=== PATIENT | male | born 1960 | race Caucasian/White ===

== ENCOUNTER 2018-03-01 09:14 | Inpatient (IN) ==
[2018-03-01] MEDS ORDERED: DEXTROSE 50% 25 GM/50 ML VIAL IV PRN (11:09)
[2018-03-01] MEDS ORDERED: ZALEPLON 5 MG CAPSULE PO PRN (11:15)
[2018-03-01] MEDS ORDERED: SODIUM CHLORIDE 0.9% 1,000 ML IV SCH (11:30)
[2018-03-01] MEDS ORDERED: GLUCAGON 1 MG VIAL IM PRN (11:50)
[2018-03-01] MEDS: CHLORHEXIDINE 4% SOLN 118 ML BOTTLE TOP SCH ×2 (15:20→21:12)
[2018-03-01] MEDS ORDERED: CHLORHEXIDINE 0.12% ORAL RINSE 60 ML BOTTLE SWISH/SPIT SCH (21:00)
[2018-03-01] MEDS ORDERED: glyBURIDE 2.5 MG TABLET PO SCH (21:00)
[2018-03-02] MEDS ORDERED: CEFUROXIME INJ 1,500 MG in SYRINGE 1 EACH IV ONE (05:00)
[2018-03-02] MEDS ORDERED: VANCOMYCIN 1,000 MG VIAL ONE (05:32)
[2018-03-02] MEDS ORDERED: SUFentanil 250 MCG/5 ML AMP ONE ×2 (05:47→08:59)
[2018-03-02] MEDS ORDERED: MIDAZOLAM 10 MG/2 ML VIAL ONE ×2 (05:47→13:10)
[2018-03-02] MEDS ORDERED: NITROGLYCERIN DRIP 50 MG/250 ML BOTTLE IV ONE (05:48)
[2018-03-02] MEDS ORDERED: PHENYLEPHRINE DRIP 20 MG/250 ML PREMIX IV ONE ×2 (05:48→13:20)
[2018-03-02] MEDS ORDERED: HEPARIN/NACL 0.9% 2 UNITS/ML 500 ML IV ONE (05:48)
[2018-03-02 06:24] LABS: Basophils # 0.1 10*3/uL (0.0-0.2); Basophils % 1.9 % (0.0-0.8); Eosinophils # 0.9 10*3/uL (0.0-0.87); Eosinophils % 12.7 % (0.00-10.9); Hematocrit 42.9 VOL% (42.0-52.0); Hemoglobin 14.8 GM/DL (14.0-18.0); Immature Granulocytes % 0.1 %; Immature Granulocytes Absolute 0.01 #; Lymphocytes # 2.5 10*3/uL (1.4-4.0); Lymphocytes % 34.1 % (21.2-54.2); Mean Corpuscular HGB Conc 34.5 GM/DL (32-36); Mean Corpuscular Hemoglobin 33 PG (27-34); Mean Corpuscular Volume 94.1 FL (87-102); Mean Platelet Volume 10.7 FL (9.6-12.0); Monocytes # 0.7 10*3/uL (0.11-0.8); Monocytes % 9.1 % (1.7-12.7); Neutrophils # 3.1 10*3/uL (1.4-7.4); Neutrophils % 42.1 % (38.7-73.9); Platelet Count 206 T/CUMM (130-400); Red Blood Count 4.56 MC/CUMM (3.8-5.5); White Blood Count 7.3 T/CUMM (4-12)
[2018-03-02 07:08] LABS: Albumin 3.8 G/DL (3.4-5.0); Bilirubin,Total 1.4 MG/DL (0.2-1.0); Calcium 8.6 MG/DL (8.5-10.1); Total Protein 6.5 G/DL (6.4-8.3)
[2018-03-02 07:09] LABS: Osmolality,Calculated 279.5 MOS/KG (273-304)
[2018-03-02 07:23] LABS: Eosinophils 20 % (0-10); Hypochromasia 1+; Lymphocytes 33 % (20-55); Platelet Estimate Adequate; Segmented Neutrophils 39 % (50-85); Total Cells Counted 100
[2018-03-02 07:51] LABS: ABG Base Excess -1.9 MMOL/L (-2.5-2.5); ABG HCO3 22.9 MMOL/L (20-26); ABG Oxygen Saturation 99.7 % (95-100); ABG PCO2 31.3 MM HG (35-48); ABG TCO2 18.4 MMOL/L (23-27); Glucose Heart Surgery 153 MG/DL (74-106); Hematocrit Heart Surgery 41.2 PERCENT (42-52); Hemoglobin Heart Surgery 13.4 G/DL (14.0-18.0); Ionized Calcium Arterial 1.11 MMOL/L (1.21-1.46); PCO2 Patient Temp Arterial 31.3 MMHG; Patient Temperature 37 CELCIUS; Potassium Heart/CVR 3.9 MMOL/L (3.5-5.1); Sodium Heart/CVR 136 MMOL/L (135-145)
[2018-03-02] MEDS ORDERED: CALCIUM CHLORIDE 1,000 MG/10 ML SYRINGE IV ONE ×2 (08:08→12:58)
[2018-03-02] MEDS ORDERED: PHENYLEPHRINE DRIP 40 MG/250 ML PREMIX IV ONE (08:08)
[2018-03-02] MEDS ORDERED: NITROPRUSSIDE 50 MG/2 ML VIAL ONE (08:08)
[2018-03-02] MEDS ORDERED: POTASSIUM CHLORIDE RIDER 100 ML IV ONE (08:08)
[2018-03-02 08:43] LABS: Hematocrit Heart Surgery 29.6 PERCENT (42-52); Hemoglobin Heart Surgery 9.6 G/DL (14.0-18.0); PCO2 Patient Temp Venous 35.5 MM HG; PH Patient Temp Venous 7.448; PO2 Patient Temp Venous 37.9 MM HG; Potassium Heart/CVR 5.2 MMOL/L (3.5-5.1); VBG Base Excess 0.8 MEQ/L (0-4); VBG HCO3 24.9 MEQ/L (24-28); VBG Oxygen Saturation 79.9 %; VBG PCO2 39.1 MMHG (41-51); VBG PH 7.418; VBG PO2 43.5 MMHG (17-40)
[2018-03-02] MEDS ORDERED: ROCURONIUM 100 MG/10 ML VIAL IV ONE ×2 (08:59→13:20)
[2018-03-02] MEDS ORDERED: LISINOPRIL 20 MG TABLET PO SCH (09:00)
[2018-03-02] MEDS ORDERED: ATORVASTATIN 40 MG TABLET PO SCH (09:00)
[2018-03-02] MEDS ORDERED: ASPIRIN EC 81 MG TABLET PO SCH (09:00)
[2018-03-02 09:13] LABS: Hematocrit Heart Surgery 34.1 PERCENT (42-52); Hemoglobin Heart Surgery 11.1 G/DL (14.0-18.0); PCO2 Patient Temp Venous 30.5 MM HG; PH Patient Temp Venous 7.487; PO2 Patient Temp Venous 33.4 MM HG; Potassium Heart/CVR 5.9 MMOL/L (3.5-5.1); VBG Base Excess 0.4 MEQ/L (0-4); VBG HCO3 24.5 MEQ/L (24-28); VBG Oxygen Saturation 80.5 %; VBG PH 7.428; VBG PO2 44.1 MMHG (17-40)
[2018-03-02 09:44] LABS: Hematocrit Heart Surgery 35.7 PERCENT (42-52); Hemoglobin Heart Surgery 11.6 G/DL (14.0-18.0); PCO2 Patient Temp Venous 28.1 MM HG; PH Patient Temp Venous 7.515; PO2 Patient Temp Venous 32.5 MM HG; VBG Base Excess 0.6 MEQ/L (0-4); VBG HCO3 24.6 MEQ/L (24-28); VBG Oxygen Saturation 80.7 %; VBG PCO2 34.1 MMHG (41-51); VBG PH 7.455
[2018-03-02 09:45] LABS: Potassium Heart/CVR 6.1 MMOL/L (3.5-5.1)
[2018-03-02] MEDS ORDERED: methylPREDNISolone SOD SUC 1,000 MG/8 ML VIAL ONE (10:41)
[2018-03-02] MEDS ORDERED: ALBUMIN 25% 25 GM/100 ML VIAL IV ONE (10:41)
[2018-03-02] MEDS ORDERED: SODIUM BICARBONATE 50 MEQ/50 ML SYRINGE IV ONE ×3 (10:41→13:00)
[2018-03-02] MEDS ORDERED: MAGNESIUM SULFATE 10 GM/20 ML VIAL IV ONE (10:41)
[2018-03-02] MEDS ORDERED: FUROSEMIDE 20 MG/2 ML VIAL ONE (10:41)
[2018-03-02] MEDS ORDERED: MANNITOL 12.5 GM/50 ML VIAL IV ONE (10:41)
[2018-03-02] MEDS ORDERED: PROTAMINE SULFATE 250 MG/25 ML VIAL IV ONE (10:41)
[2018-03-02] MEDS ORDERED: DEXTROSE 5% KCL 20 MEQ 20 MEQ/1,000 ML BAG IV ONE (10:41)
[2018-03-02] MEDS ORDERED: HEPARIN 10,000 UNIT/10 ML VIAL ONE (10:41)
[2018-03-02 10:52] LABS: Hematocrit Heart Surgery 30.2 PERCENT (42-52); Hemoglobin Heart Surgery 9.7 G/DL (14.0-18.0); PCO2 Patient Temp Venous 31.8 MM HG; PH Patient Temp Venous 7.432; Potassium Heart/CVR 4.3 MMOL/L (3.5-5.1); VBG Base Excess -2.4 MEQ/L (0-4); VBG HCO3 22.5 MEQ/L (24-28); VBG PCO2 31.8 MMHG (41-51); VBG PH 7.432
[2018-03-02] MEDS ORDERED: ALBUMIN 5% 12.5 GM/250 ML VIAL IV ONE ×3 (11:04→13:16)
[2018-03-02] MEDS ORDERED: THROMBIN TOPICAL (RECOMBINANT) 5,000 UNIT VIAL TOP ONE (11:11)
[2018-03-02 12:33] LABS: ABG Base Excess -3.7 MMOL/L (-2.5-2.5); ABG HCO3 21.3 MMOL/L (20-26); ABG Oxygen Saturation 99.8 % (95-100); ABG PCO2 38.5 MM HG (35-48); ABG PH 7.354 (7.35-7.45); ABG TCO2 20.1 MMOL/L (23-27); Glucose Heart Surgery 303 MG/DL (74-106); Hematocrit Heart Surgery 24.6 PERCENT (42-52); Hemoglobin Heart Surgery 7.9 G/DL (14.0-18.0); Ionized Calcium Arterial 1.11 MMOL/L (1.21-1.46); PCO2 Patient Temp Arterial 38.5 MMHG; PH Patient Temp Arterial 7.354; Patient Temperature 37 CELCIUS; Potassium Heart/CVR 3.6 MMOL/L (3.5-5.1); Sodium Heart/CVR 141 MMOL/L (135-145)
[2018-03-02] MEDS: ALBUMIN 5% 12.5 GM in PREMIX 1 EACH IV PRN ×4 (12:50→20:42)
[2018-03-02] MEDS ORDERED: diphenhydrAMINE 50 MG/1 ML VIAL IV ONE (12:55)
[2018-03-02] MEDS ORDERED: SEVOFLURANE 1 UNIT/15 MINUTE INH ONE (13:15)
[2018-03-02] MEDS ORDERED: diphenhydrAMINE 50 MG/1 ML VIAL ONE (13:16)
[2018-03-02] MEDS ORDERED: MIDAZOLAM 2 MG/2 ML VIAL IV PRN (13:18)
[2018-03-02] MEDS ORDERED: MIDAZOLAM 10 MG/2 ML VIAL IV PRN (13:18)
[2018-03-02] MEDS ORDERED: VECURONIUM 10 MG VIAL IV PRN ×2 (13:18)
[2018-03-02] MEDS ORDERED: INSULIN REGULAR DRIP 100 ML IV SCH (13:18)
[2018-03-02] MEDS ORDERED: PHENYLEPHRINE DRIP 40 MG/250 ML PREMIX IV PRN (13:18)
[2018-03-02] MEDS ORDERED: MORPHINE 4 MG/1 ML VIAL IV PRN (13:18)
[2018-03-02] MEDS ORDERED: CALCIUM CHLORIDE 1,000 MG/10 ML SYRINGE IV PRN (13:18)
[2018-03-02] MEDS ORDERED: ONDANSETRON 4 MG/2 ML VIAL IV PRN (13:18)
[2018-03-02] MEDS ORDERED: MORPHINE 10 MG/1 ML VIAL IV PRN (13:18)
[2018-03-02] MEDS ORDERED: SODIUM CHLORIDE 0.45% 1,000 ML IV SCH ×2 (13:18)
[2018-03-02] MEDS ORDERED: MAGNESIUM SULF RIDER 2 GM in PREMIX 1 EACH IV PRN (13:18)
[2018-03-02] MEDS ORDERED: NITROPRUSSIDE 100 MG in DEXTROSE 5% 250 ML IV PRN (13:18)
[2018-03-02] MEDS ORDERED: POTASSIUM CHLORIDE RIDER 10 MEQ in PREMIX 1 EACH IV PRN (13:18)
[2018-03-02] MEDS ORDERED: CALCIUM CHLORIDE 1,000 MG/10 ML VIAL IV ONE (13:18)
[2018-03-02] MEDS ORDERED: INSULIN REGULAR 100 UNIT/ML IV PRN (13:18)
[2018-03-02] MEDS ORDERED: ACETAMINOPHEN 650 MG SUPP RECTAL PRN (13:18)
[2018-03-02] MEDS ORDERED: LACTATED RINGERS 250 ML IV PRN (13:18)
[2018-03-02] MEDS ORDERED: MAGNESIUM SULF RIDER 4 GM in PREMIX 1 EACH IV PRN (13:18)
[2018-03-02] MEDS ORDERED: INSULIN REGULAR 100 UNIT/ML IV ONE (13:18)
[2018-03-02] MEDS ORDERED: DEXTROSE 50% 25 GM/50 ML VIAL IV PRN ×2 (13:18)
[2018-03-02] MEDS ORDERED: PHENYLEPHRINE 1 MG/10 ML SYRINGE IV ONE (13:19)
[2018-03-02] MEDS ORDERED: MINERAL OIL/PETROLATUM OPH OINT 3.5 GM TUBE ONE (13:19)
[2018-03-02] MEDS ORDERED: AMINOCAPROIC ACID 5,000 MG/20 ML VIAL IV ONE (13:19)
[2018-03-02] MEDS ORDERED: ETOMIDATE 40 MG/20 ML VIAL IV ONE (13:19)
[2018-03-02] MEDS ORDERED: ePHEDrine 50 MG/ML AMP ONE (13:19)
[2018-03-02] MEDS ORDERED: SODIUM CHLORIDE 0.9% 2,000 ML IV ONE (13:20)
[2018-03-02] MEDS ORDERED: SODIUM CHLORIDE 0.9% 250 ML IV ONE (13:20)
[2018-03-02] MEDS ORDERED: ESMOLOL 100 MG/10 ML VIAL IV ONE (13:24)
[2018-03-02] MEDS ORDERED: EPINEPHrine 1 MG/ML VIAL ONE (13:24)
[2018-03-02] MEDS ORDERED: PROTAMINE SULFATE 50 MG/5 ML VIAL IV ONE ×2 (13:28→13:30)
[2018-03-02 14:18] LABS: ABG Base Excess -0.9 MMOL/L (-2.5-2.5); ABG HCO3 23.7 MMOL/L (20-26); ABG Oxygen Saturation 99.5 % (95-100); ABG PCO2 41.3 MM HG (35-48); ABG PH 7.376 (7.35-7.45); ABG TCO2 22.2 MMOL/L (23-27); Glucose Heart Surgery 307 MG/DL (74-106); Hematocrit Heart Surgery 29.1 PERCENT (42-52); Hemoglobin Heart Surgery 9.4 G/DL (14.0-18.0); Potassium Heart/CVR 4.2 MMOL/L (3.5-5.1)
[2018-03-02 14:22] LABS: Basophils # 0.1 10*3/uL (0.0-0.2); Basophils % 0.4 % (0.0-0.8); Eosinophils # 0.1 10*3/uL (0.0-0.87); Eosinophils % 0.6 % (0.00-10.9); Hematocrit 26.5 VOL% (42.0-52.0); Hemoglobin 9.2 GM/DL (14.0-18.0); Immature Granulocytes % 0.5 %; Immature Granulocytes Absolute 0.07 #; Lymphocytes # 0.7 10*3/uL (1.4-4.0); Mean Corpuscular HGB Conc 34.7 GM/DL (32-36); Mean Corpuscular Hemoglobin 32 PG (27-34); Mean Platelet Volume 10.5 FL (9.6-12.0); Monocytes # 0.5 10*3/uL (0.11-0.8); Monocytes % 3.3 % (1.7-12.7); Neutrophils % 90.2 % (38.7-73.9); Platelet Count 132 T/CUMM (130-400); Red Blood Count 2.88 MC/CUMM (3.8-5.5); Red Cell Distribution Width 13.4 % (9.3-17.3); White Blood Count 14.4 T/CUMM (4-12)
[2018-03-02] MEDS: KETOROLAC 30 MG/1 ML VIAL IV SCH ×2 (14:37→19:23)
[2018-03-02] MEDS: POTASSIUM CHLORIDE RIDER 20 MEQ in PREMIX 1 EACH IV PRN ×2 (14:41→18:17)
[2018-03-02 14:45] LABS: Albumin 3.4 G/DL (3.4-5.0); Bilirubin,Total 2.3 MG/DL (0.2-1.0); CKMB % 7.2 %; Osmolality,Calculated 300.6 MOS/KG (273-304); Potassium 4.5 MMOL/L (3.5-5.1); Total Protein 4.8 G/DL (6.4-8.3)
[2018-03-02 14:48] LABS: Troponin I 6.28 NG/ML (0.00-0.045)
[2018-03-02] MEDS: LACTATED RINGERS 1,000 ML IV PRN ×2 (15:00→18:21)
[2018-03-02 15:03] LABS: INR 1.4; PT Patient Result 14.3 SECS; Partial Thromboplastin Time 31.6 SECS (0-40)
[2018-03-02] MEDS: METOPROLOL TARTRATE 25 MG TABLET PO SCH ×2 (15:06→20:18)
[2018-03-02 16:01] LABS: ABG Base Excess -0.3 MMOL/L (-2.5-2.5); ABG HCO3 24.2 MMOL/L (20-26); ABG Oxygen Saturation 99.6 % (95-100); ABG PCO2 45.4 MM HG (35-48); ABG PH 7.358 (7.35-7.45); Glucose Heart Surgery 263 MG/DL (74-106); Hematocrit Heart Surgery 33.8 PERCENT (42-52)
[2018-03-02 18:07] LABS: ABG Base Excess 0.1 MMOL/L (-2.5-2.5); ABG HCO3 24.5 MMOL/L (20-26); ABG Oxygen Saturation 99.1 % (95-100); ABG PCO2 44.5 MM HG (35-48); ABG PH 7.368 (7.35-7.45); ABG TCO2 23.1 MMOL/L (23-27); Glucose Heart Surgery 176 MG/DL (74-106); Hematocrit Heart Surgery 33.3 PERCENT (42-52); Hemoglobin Heart Surgery 10.8 G/DL (14.0-18.0); Potassium Heart/CVR 3.9 MMOL/L (3.5-5.1)
[2018-03-02] MEDS: CEFUROXIME INJ 1,500 MG in SYRINGE 1 EACH IV SCH (20:17)
[2018-03-02] MEDS: CHLORHEXIDINE 0.12% ORAL RINSE 60 ML BOTTLE SWISH/SPIT SCH (20:18)
[2018-03-02 20:51] LABS: ABG Base Excess 0.4 MMOL/L (-2.5-2.5); ABG HCO3 24.8 MMOL/L (20-26); ABG Oxygen Saturation 99.2 % (95-100); ABG PCO2 43.8 MM HG (35-48); ABG PH 7.377 (7.35-7.45); ABG TCO2 23.4 MMOL/L (23-27); Glucose Heart Surgery 184 MG/DL (74-106); Hematocrit Heart Surgery 31.5 PERCENT (42-52); Hemoglobin Heart Surgery 10.2 G/DL (14.0-18.0); Potassium Heart/CVR 4.4 MMOL/L (3.5-5.1)
[2018-03-02 21:23] LABS: CKMB % 4.3 %
[2018-03-02 21:24] LABS: Troponin I 4.05 NG/ML (0.00-0.045)
[2018-03-03 00:05] LABS: ABG Base Excess -0.8 MMOL/L (-2.5-2.5); ABG HCO3 23.8 MMOL/L (20-26); ABG Oxygen Saturation 99.3 % (95-100); ABG PCO2 45.3 MM HG (35-48); ABG TCO2 22.8 MMOL/L (23-27); Glucose Heart Surgery 207 MG/DL (74-106); Hematocrit Heart Surgery 31.9 PERCENT (42-52); Hemoglobin Heart Surgery 10.3 G/DL (14.0-18.0); Potassium Heart/CVR 4.3 MMOL/L (3.5-5.1)
[2018-03-03] MEDS: LACTATED RINGERS 1,000 ML IV PRN (00:15)
[2018-03-03 01:03] LABS: ABG Base Excess -2.1 MMOL/L (-2.5-2.5); ABG HCO3 22.6 MMOL/L (20-26); ABG Oxygen Saturation 94.3 % (95-100); ABG PCO2 60.7 MM HG (35-48); ABG PH 7.244 (7.35-7.45); ABG PO2 81.5 MM HG (80-95); ABG TCO2 24.4 MMOL/L (23-27); Glucose Heart Surgery 204 MG/DL (74-106); Hematocrit Heart Surgery 30.5 PERCENT (42-52); Hemoglobin Heart Surgery 9.8 G/DL (14.0-18.0); Potassium Heart/CVR 4.1 MMOL/L (3.5-5.1)
[2018-03-03] MEDS: KETOROLAC 30 MG/1 ML VIAL IV SCH ×4 (01:19→21:51)
[2018-03-03 01:43] LABS: ABG Base Excess -2.1 MMOL/L (-2.5-2.5); ABG HCO3 25.6 MMOL/L (20-26); ABG Oxygen Saturation 96.4 % (95-100); ABG PCO2 58.5 MM HG (35-48); ABG PH 7.259 (7.35-7.45); ABG PO2 106.9 MM HG (80-95); ABG TCO2 27.4 MMOL/L (23-27); Glucose Heart Surgery 177 MG/DL (74-106); Hemoglobin Heart Surgery 10.6 G/DL (14.0-18.0); Potassium Heart/CVR 3.5 MMOL/L (3.5-5.1)
[2018-03-03 02:56] LABS: ABG Base Excess -1.1 MMOL/L (-2.5-2.5); ABG HCO3 23.5 MMOL/L (20-26); ABG Oxygen Saturation 96.8 % (95-100); ABG PCO2 62.6 MM HG (35-48); ABG PH 7.247 (7.35-7.45); ABG PO2 97.9 MM HG (80-95); ABG TCO2 25.4 MMOL/L (23-27); Glucose Heart Surgery 191 MG/DL (74-106); Hematocrit Heart Surgery 30.4 PERCENT (42-52); Hemoglobin Heart Surgery 9.8 G/DL (14.0-18.0); Potassium Heart/CVR 4.1 MMOL/L (3.5-5.1)
[2018-03-03] MEDS ORDERED: FUROSEMIDE 40 MG/4 ML VIAL IV ONE (03:42)
[2018-03-03 03:57] LABS: Albumin 3.6 G/DL (3.4-5.0); Bilirubin,Direct 0.25 MG/DL (0.0-0.20); Bilirubin,Total 1.5 MG/DL (0.2-1.0); Calcium 8.4 MG/DL (8.5-10.1); Osmolality,Calculated 296.6 MOS/KG (273-304); Potassium 4.3 MMOL/L (3.5-5.1); Total Protein 5.2 G/DL (6.4-8.3)
[2018-03-03] MEDS ORDERED: methylPREDNISolone SOD SUC 40 MG/1 ML VIAL IV SCH (04:00)
[2018-03-03] MEDS: ALBUTEROL/IPRATROPIUM 3 ML NEB RESP TX SCH ×6 (04:00→23:28)
[2018-03-03 04:01] LABS: Troponin I 2.99 NG/ML (0.00-0.045)
[2018-03-03 04:16] LABS: Basophils % 0.1 % (0.0-0.8); Hematocrit 27.7 VOL% (42.0-52.0); Hemoglobin 9.5 GM/DL (14.0-18.0); Immature Granulocytes % 0.6 %; Immature Granulocytes Absolute 0.13 #; Lymphocytes # 0.8 10*3/uL (1.4-4.0); Mean Corpuscular HGB Conc 34.3 GM/DL (32-36); Mean Corpuscular Hemoglobin 32 PG (27-34); Mean Corpuscular Volume 92.3 FL (87-102); Mean Platelet Volume 10.6 FL (9.6-12.0); Monocytes # 1.4 10*3/uL (0.11-0.8); Monocytes % 6.8 % (1.7-12.7); Neutrophils # 18.1 10*3/uL (1.4-7.4); Neutrophils % 88.5 % (38.7-73.9); Platelet Count 104 T/CUMM (130-400); White Blood Count 20.5 T/CUMM (4-12)
[2018-03-03 04:49] LABS: Band Neutrophils 3 % (0-10); Hypochromasia 1+; Lymphocytes 5 % (20-55); Ovalocytes Slight; Platelet Estimate Decreased; Segmented Neutrophils 86 % (50-85); Total Cells Counted 100
[2018-03-03 04:55] LABS: ABG Base Excess 0.7 MMOL/L (-2.5-2.5); ABG HCO3 25.1 MMOL/L (20-26); ABG Oxygen Saturation 99.4 % (95-100); ABG PCO2 44.2 MM HG (35-48); ABG PH 7.378 (7.35-7.45); ABG TCO2 23.7 MMOL/L (23-27); Glucose Heart Surgery 173 MG/DL (74-106); Hematocrit Heart Surgery 31.6 PERCENT (42-52); Hemoglobin Heart Surgery 10.2 G/DL (14.0-18.0); Potassium Heart/CVR 4.3 MMOL/L (3.5-5.1)
[2018-03-03] MEDS: METOPROLOL TARTRATE 25 MG TABLET PO SCH (08:01)
[2018-03-03] MEDS: CEFUROXIME INJ 1,500 MG in SYRINGE 1 EACH IV SCH (08:01)
[2018-03-03 08:29] LABS: ABG Base Excess 2.1 MMOL/L (-2.5-2.5); ABG Oxygen Saturation 97.6 % (95-100); ABG PCO2 42.9 MM HG (35-48); ABG PH 7.416 (7.35-7.45); ABG PO2 118.8 MM HG (80-95); ABG TCO2 28.3 MMOL/L (23-27); Glucose Heart Surgery 109 MG/DL (74-106); Hemoglobin Heart Surgery 10.5 G/DL (14.0-18.0); Potassium Heart/CVR 3.7 MMOL/L (3.5-5.1)
[2018-03-03] MEDS: POTASSIUM CHLORIDE RIDER 20 MEQ in PREMIX 1 EACH IV PRN (08:33)
[2018-03-03] MEDS: CHLORHEXIDINE 0.12% ORAL RINSE 60 ML BOTTLE SWISH/SPIT SCH ×2 (08:36→21:45)
[2018-03-03] MEDS ORDERED: INFLUENZA VIRUS VACCINE 0.5 ML SYRINGE IM ONE (09:00)
[2018-03-03] MEDS ORDERED: PNEUMOCOCCAL VACCINE (13 VALENT) 0.5 ML SYRINGE IM ONE (09:00)
[2018-03-03] MEDS: METOPROLOL TARTRATE 50 MG TABLET PO SCH ×2 (10:33→21:44)
[2018-03-03] MEDS: methylPREDNISolone SOD SUC 40 MG/1 ML VIAL IV SCH ×2 (10:37→21:44)
[2018-03-03] MEDS ORDERED: ONDANSETRON 4 MG/2 ML VIAL IV PRN (12:37)
[2018-03-03] MEDS ORDERED: ALUMINUM/MAGNES/SIMETH MAX STR 30 ML UDCUP PO PRN (12:37)
[2018-03-03] MEDS ORDERED: POTASSIUM CHLORIDE 20 MEQ TABLET PO PRN (12:37)
[2018-03-03] MEDS ORDERED: SODIUM CHLOR 0.45% KCL 20 MEQ 20 MEQ/1,000 ML BAG IV SCH (12:37)
[2018-03-03] MEDS ORDERED: ACETAMINOPHEN 325 MG TABLET PO PRN (12:37)
[2018-03-03] MEDS ORDERED: GLUCAGON 1 MG VIAL IM PRN ×2 (12:37)
[2018-03-03] MEDS ORDERED: ZALEPLON 5 MG CAPSULE PO PRN (12:37)
[2018-03-03] MEDS ORDERED: MAGNESIUM HYDROXIDE SUSP 30 ML UDCUP PO PRN (12:37)
[2018-03-03] MEDS ORDERED: oxyCODONE/ACETAMINOPHEN 5-325 MG TABLET PO PRN (12:37)
[2018-03-03] MEDS ORDERED: DEXTROSE 50% 25 GM/50 ML VIAL IV PRN ×2 (12:37)
[2018-03-03] MEDS ORDERED: MAGNESIUM SULF RIDER 2 GM in PREMIX 1 EACH IV PRN (12:37)
[2018-03-03] MEDS ORDERED: MAGNESIUM SULF RIDER 4 GM in PREMIX 1 EACH IV PRN (12:37)
[2018-03-03] MEDS ORDERED: MORPHINE 4 MG/1 ML VIAL IV PRN (12:37)
[2018-03-03] MEDS: glyBURIDE 2.5 MG TABLET PO SCH (21:44)
[2018-03-03] MEDS: INSULIN REGULAR 100 UNIT/ML SUBCUT SCH (21:52)
[2018-03-04] MEDS: ALBUTEROL/IPRATROPIUM 3 ML NEB RESP TX SCH ×6 (02:31→23:55)
[2018-03-04 02:38] LABS: Basophils % 0.1 % (0.0-0.8); Hematocrit 27.3 VOL% (42.0-52.0); Hemoglobin 9.1 GM/DL (14.0-18.0); Immature Granulocytes % 3.6 %; Immature Granulocytes Absolute 0.84 #; Lymphocytes # 0.7 10*3/uL (1.4-4.0); Lymphocytes % 2.9 % (21.2-54.2); Mean Corpuscular HGB Conc 33.3 GM/DL (32-36); Mean Corpuscular Hemoglobin 31 PG (27-34); Mean Corpuscular Volume 94.1 FL (87-102); Mean Platelet Volume 11.6 FL (9.6-12.0); Monocytes # 1.3 10*3/uL (0.11-0.8); Monocytes % 5.6 % (1.7-12.7); Neutrophils # 20.6 10*3/uL (1.4-7.4); Neutrophils % 87.8 % (38.7-73.9); Platelet Count 89 T/CUMM (130-400); Red Cell Distribution Width 14.9 % (9.3-17.3); White Blood Count 23.4 T/CUMM (4-12)
[2018-03-04] MEDS: KETOROLAC 30 MG/1 ML VIAL IV SCH ×4 (02:45→21:45)
[2018-03-04 03:19] LABS: Metamyelocytes 1 %; Platelet Estimate Decreased; Total Cells Counted 100
[2018-03-04 03:20] LABS: Anisocytosis 1+; Band Neutrophils 5 % (0-10); Lymphocytes 4 % (20-55); Macrocytosis 1+; Segmented Neutrophils 83 % (50-85)
[2018-03-04 03:29] LABS: Calcium 8.2 MG/DL (8.5-10.1)
[2018-03-04 03:30] LABS: Albumin 3.3 G/DL (3.4-5.0); Bilirubin,Direct 0.23 MG/DL (0.0-0.20); Bilirubin,Indirect 0.8 MG/DL (0.0-1.0); CKMB % 1.4 %; Osmolality,Calculated 296.3 MOS/KG (273-304); Potassium 4.3 MMOL/L (3.5-5.1); Total Protein 5.3 G/DL (6.4-8.3)
[2018-03-04 03:32] LABS: Troponin I 2.62 NG/ML (0.00-0.045)
[2018-03-04] MEDS ORDERED: FUROSEMIDE 40 MG/4 ML VIAL IV ONE (06:00)
[2018-03-04] MEDS ORDERED: MIDAZOLAM 10 MG/2 ML VIAL ONE (09:06)
[2018-03-04] MEDS ORDERED: NALOXONE 0.4 MG/ML VIAL ONE (09:07)
[2018-03-04] MEDS ORDERED: FLUMAZENIL 0.5 MG/5 ML VIAL IV ONE (09:08)
[2018-03-04] MEDS: INSULIN REGULAR 100 UNIT/ML SUBCUT SCH ×4 (10:42→21:45)
[2018-03-04] MEDS: ASPIRIN EC 81 MG TABLET PO SCH (10:51)
[2018-03-04] MEDS: FERROUS SULFATE 325 MG TABLET PO SCH (10:52)
[2018-03-04] MEDS: METOPROLOL TARTRATE 50 MG TABLET PO SCH ×2 (10:52→21:54)
[2018-03-04] MEDS: DOCUSATE SODIUM 100 MG CAPSULE PO SCH (10:52)
[2018-03-04] MEDS: glyBURIDE 2.5 MG TABLET PO SCH ×2 (10:52→21:43)
[2018-03-04] MEDS: LISINOPRIL 20 MG TABLET PO SCH (10:53)
[2018-03-04] MEDS: ATORVASTATIN 40 MG TABLET PO SCH (10:53)
[2018-03-04] MEDS: PANTOPRAZOLE 40 MG TABLET PO SCH (10:53)
[2018-03-04] MEDS: CHLORHEXIDINE 0.12% ORAL RINSE 60 ML BOTTLE SWISH/SPIT SCH ×2 (11:06→21:56)
[2018-03-04] MEDS: methylPREDNISolone SOD SUC 40 MG/1 ML VIAL IV SCH ×2 (15:30→21:46)
[2018-03-05 02:41] LABS: Basophils % 0.1 % (0.0-0.8); Hematocrit 26.3 VOL% (42.0-52.0); Hemoglobin 8.8 GM/DL (14.0-18.0); Immature Granulocytes Absolute 0.18 #; Lymphocytes # 0.7 10*3/uL (1.4-4.0); Lymphocytes % 4.2 % (21.2-54.2); Mean Corpuscular HGB Conc 33.5 GM/DL (32-36); Mean Corpuscular Hemoglobin 32 PG (27-34); Mean Corpuscular Volume 94.6 FL (87-102); Mean Platelet Volume 11.9 FL (9.6-12.0); Monocytes # 0.7 10*3/uL (0.11-0.8); Monocytes % 4.1 % (1.7-12.7); Neutrophils # 15.6 10*3/uL (1.4-7.4); Neutrophils % 90.6 % (38.7-73.9); Red Blood Count 2.78 MC/CUMM (3.8-5.5); Red Cell Distribution Width 14.5 % (9.3-17.3); White Blood Count 17.3 T/CUMM (4-12)
[2018-03-05 02:42] LABS: Platelet Count 77 T/CUMM (130-400)
[2018-03-05 03:08] LABS: Lymphocytes 3 % (20-55); Segmented Neutrophils 93 % (50-85)
[2018-03-05 03:09] LABS: Hypochromasia 2+; Platelet Estimate Decreased
[2018-03-05 03:10] LABS: Total Cells Counted 100
[2018-03-05] MEDS: ALBUTEROL/IPRATROPIUM 3 ML NEB RESP TX SCH ×5 (03:43→23:00)
[2018-03-05 03:48] LABS: Bilirubin,Direct 0.23 MG/DL (0.0-0.20); Bilirubin,Indirect 0.6 MG/DL (0.0-1.0); Bilirubin,Total 0.8 MG/DL (0.2-1.0); Osmolality,Calculated 294.4 MOS/KG (273-304); Potassium 4.1 MMOL/L (3.5-5.1); Total Protein 5.4 G/DL (6.4-8.3)
[2018-03-05 03:50] LABS: Troponin I 2.16 NG/ML (0.00-0.045)
[2018-03-05] MEDS ORDERED: INFLUENZA VIRUS VACCINE 0.5 ML SYRINGE IM ONE (06:00)
[2018-03-05] MEDS: KETOROLAC 30 MG/1 ML VIAL IV SCH ×4 (10:04→21:17)
[2018-03-05] MEDS: LISINOPRIL 20 MG TABLET PO SCH (10:05)
[2018-03-05] MEDS: predniSONE 10 MG TABLET PO SCH (10:05)
[2018-03-05] MEDS: PANTOPRAZOLE 40 MG TABLET PO SCH (10:05)
[2018-03-05] MEDS: ATORVASTATIN 40 MG TABLET PO SCH (10:06)
[2018-03-05] MEDS: METOPROLOL TARTRATE 50 MG TABLET PO SCH ×3 (10:06→21:18)
[2018-03-05] MEDS: DOCUSATE SODIUM 100 MG CAPSULE PO SCH (10:07)
[2018-03-05] MEDS: FERROUS SULFATE 325 MG TABLET PO SCH (10:07)
[2018-03-05] MEDS: glyBURIDE 2.5 MG TABLET PO SCH ×2 (10:07→21:18)
[2018-03-05] MEDS: ASPIRIN EC 81 MG TABLET PO SCH (10:08)
[2018-03-05] MEDS: CHLORHEXIDINE 0.12% ORAL RINSE 60 ML BOTTLE SWISH/SPIT SCH ×2 (10:09→21:19)
[2018-03-05] MEDS: INSULIN REGULAR 100 UNIT/ML SUBCUT SCH ×4 (10:19→21:18)
[2018-03-05] MEDS: CHLORHEXIDINE 4% SOLN 118 ML BOTTLE TOP SCH (16:05)
[2018-03-06] MEDS: ALBUTEROL/IPRATROPIUM 3 ML NEB RESP TX SCH ×3 (03:10→10:40)
[2018-03-06] MEDS: KETOROLAC 30 MG/1 ML VIAL IV SCH ×2 (04:15→09:20)
[2018-03-06] MEDS ORDERED: FLUMAZENIL 0.5 MG/5 ML VIAL IV ONE (07:58)
[2018-03-06] MEDS ORDERED: MIDAZOLAM 10 MG/2 ML VIAL ONE (07:58)
[2018-03-06] MEDS ORDERED: NALOXONE 0.4 MG/ML VIAL ONE (07:58)
[2018-03-06] MEDS: INSULIN REGULAR 100 UNIT/ML SUBCUT SCH (09:19)
[2018-03-06] MEDS: LISINOPRIL 20 MG TABLET PO SCH (09:20)
[2018-03-06] MEDS: METOPROLOL TARTRATE 50 MG TABLET PO SCH (09:20)
[2018-03-06] MEDS: FERROUS SULFATE 325 MG TABLET PO SCH (09:21)
[2018-03-06] MEDS: predniSONE 10 MG TABLET PO SCH (09:21)
[2018-03-06] MEDS: PANTOPRAZOLE 40 MG TABLET PO SCH (09:21)
[2018-03-06] MEDS: ASPIRIN EC 81 MG TABLET PO SCH (09:21)
[2018-03-06] MEDS: DOCUSATE SODIUM 100 MG CAPSULE PO SCH (09:21)
[2018-03-06] MEDS: ATORVASTATIN 40 MG TABLET PO SCH (09:21)
[2018-03-06] MEDS: CHLORHEXIDINE 0.12% ORAL RINSE 60 ML BOTTLE SWISH/SPIT SCH (09:22)
[2018-03-06] MEDS: glyBURIDE 2.5 MG TABLET PO SCH (09:43)
[2018-03-06 12:07] VITALS: BP 120/70
== END 2018-03-06 12:00 | disposition home or self-care (01) | DRG 220 ==
LOC: N.2W 09:14 → N.TELES 12:11 → N.CVR 03-02 07:55 → N.TELES 03-03 11:29